=== PATIENT | male | born 2000 | race Asian ===

== ENCOUNTER 2020-11-08 11:35 | Emergency (ER) | payer BC ==
[~2020-11-08] VITALS: Ht 165.1 cm; Wt 63.6 kg
--- NOTE | 2020-11-08 12:15 | ED.ADGEN ---
General Adult EDM: Chief Complaint: ANKLE PROBLEM HPI: HPI: Patient is a 20 year old male coming in for lateral right ankle pain. Patient states yesterday he jumped and landed wrong on his right ankle causing it to invert. No other injuries. Has failed to ambulate with a limp. Review of Systems: Review of Systems: All other systems within normal limits except for as noted in the HPI Allergies: Allergies: Allergies Coded Allergies Type Severity Reaction Last Updated Verified No Known Drug Allergies 11/08/20 No Physical Exam: PE: Constitutional: Well developed, well nourished, no acute distress, non-toxic appearance. [] HENT: Normocephalic, atraumatic, bilateral external ears normal, nose normal. [] Eyes: PERRLA, conjunctiva normal, no discharge. [] Neck: No rigidity, supple, no stridor. [] Cardiovascular: Regular rate and rhythm, brisk cap refill [] Lungs & Thorax: Non labored symmetric respirations, no tachypnea or respiratory distress [] Abdomen: Soft, nondistended. Skin: Warm, dry, no erythema, no rash. [] Back: Unremarkable Extremities: No deformities, range of motion grossly intact, no lower extremity edema. Tenderness and swelling over lateral malleolus, no tenderness over fifth metatarsal, calcaneus, Achilles tendon or medial foot [] Neurologic: Alert and oriented X 3, no focal deficits noted. [] Psychologic: Affect normal, judgement normal, mood normal. [] Current Patient Data: Vital Signs: Vital Signs Date Time Temp Pulse Resp B/P (MAP) Pulse Ox O2 Delivery O2 Flow Rate FiO2 11/08/20 12:00 99.5 104 18 132/78 (96) 97 Room Air 99.5 EKG: EKG: [] Heart Score: C/O Chest Pain: No Risk Factors: Risk Factors: DM, Current or recent (<one month) smoker, HTN, HLP, family history of CAD, obesity. Risk Scores: Score 0 - 3: 2.5% MACE over next 6 weeks - Discharge Home Score 4 - 6: 20.3% MACE over next 6 weeks - Admit for Clinical Observation Score 7 - 10: 72.7% MACE over next 6 weeks - Early Invasive Strategies Radiology/Procedures: Radiology/Procedures: [facility] [address] [place] [address] IMAGING REPORT Signed PATIENT: GISELLE STANLEY ACCOUNT: [id number] : 2000 LOCATION: ER AGE: 20 SEX: M EXAM STATUS: REG ER ORD. PHYSICIAN: ROB HURLEY MD REASON: lateral pain, swelling PROCEDURE: ANKLE RIGHT 3V Examination: 3 views of the right ankle HISTORY: History of right lateral ankle pain COMPARISON: None available. FINDINGS: Ankle mortise appears intact. Moderate soft tissue swelling identified lateral to lateral malleolus. There is oblique subtle lucency identified in the lateral malleolus of the fibula extending superiorly from the ankle mortise. IMPRESSION: Oblique subtle lucency identified in the lateral malleolus of the fibula extending superiorly from the ankle mortise likely nondisplaced fracture. Electronically signed by: Reynaldo Nagy MD (11/08/2020 1:08 PM) [id number] DICTATED and SIGNED BY: REYNALDO NAGY MD DATE: 11/08/20 [id number] [] Course & Med Decision Making: Course & Med Decision Making Pertinent Labs and Imaging studies reviewed. (See chart for details) [] Dragon Disclaimer: Dragon Disclaimer: This electronic medical record was generated, in whole or in part, using a voice recognition dictation system. Departure Departure Impression: Primary Impression: Closed left fibular fracture Disposition: HOME / SELF CARE / HOMELESS Condition: STABLE Referrals: NO PCP (PCP) Patient Instructions: Cast or Splint Care Additional Instructions: Follow-up with orthopedic surgeon, call for appointment call: [facility] [address] [address] Scripts Hydrocodone Bit/Acetaminophen (HYDROCODONE-APAP 5-325 ) 1 Tab Tablet 1 TAB PO PRN Q6HRS PRN for PAIN for 3 Days, #10 TAB 0 Refills Prov: ROB HURLEY MD 11/08/20 ROB HURLEY MD Nov 08, 2020 12:15
--- NOTE | 2020-11-08 13:10 | RAD ---
Examination: 3 views of the right ankle HISTORY: History of right lateral ankle pain COMPARISON: None available. FINDINGS: Ankle mortise appears intact. Moderate soft tissue swelling identified lateral to lateral malleolus. There is oblique subtle lucency identified in the lateral malleolus of the fibula extending superiorl y from the ankle mortise. IMPRESSION: Oblique subtle lucency identified in the lateral malleolus of the fibula extending superiorly from th e ankle mortise likely nondisplaced fracture. Electronically signed by: Reynaldo Nagy MD (11/08/2020 1:08 PM) [id number]
[2020-11-08] MEDS ORDERED: HYDR-2761 PO (13:17)
[2020-11-08 13:59] VITALS: BP 130/81
--- NOTE | 2020-11-08 14:07 | NUR ---
Neurovasculars intact before and after splint was applied. Dr. Arciniega inspected/approved splint.
== END 2020-11-08 14:20 | disposition home or self-care (01) ==
LOC: ER 11:35
DX: S82.402A Unspecified fracture of shaft of left fibula, initial encounter for closed fracture (principal); X50.9XXA Other and unspecified overexertion or strenuous movements or postures, initial encounter; Y92.89 Other specified places as the place of occurrence of the external cause; Y93.89 Activity, other specified; Y99.8 Other external cause status
CPT/HCPCS: 29515; 73610; 99283